=== PATIENT | male | born 1930 | race Caucasian/White ===

== ENCOUNTER 2020-12-09 20:55 | Emergency (ER) | payer MEDICARE, OTHER ==
[~2020-12-09 20:55] MED LIST: ACETAMINOPHEN650 MG PR; ARICEPT5 MG PO; ARTIFICIAL TEAR15 M6 EYEBOTH; ASPIRIN81 MG PO; ATIVAN0.5 MG PO; AUGMENTIN 875-1 EACH PO; BACTRIM DS TAB1 EACH PO; BISACODYL10 MG PR; CENTRUM COMPLE1 EACH PO; COREG 25MG TAB25 MG PO; CYANOCOBAL1000 MCG/1 SC; DEPAKOTE SPRIN125 MG PO; ENULOSE10 GM/15 M PO; INVANZ 1 GM VIAL1 GM IM; K-TAB ER10 MEQ PO; KEFLEX CAP 500500 MG PO; LASIX20 MG PO; LEVOXYL25 MCG PO; LEXAPRO10 MG PO; MILK OF MA400 MG/5 M PO; OMNICEF 300 MG300 MG PO; POTASSIUM CHLO10 MEQ PO; PROTONIX 40 MG40 MG PO; ROBITUSSIN DM UD5 ML GT; SIMVASTATIN20 MG PO; SYNTHROID25 MCG PO; TYLENOL325 MG PO; VISTARIL25 MG PO; VITAMIN D325 MCG PO; VOLTAREN EC 5050 MG PO; ZOCOR20 MG PO
== END 2020-12-10 02:28 | disposition home or self-care (01) ==
LOC: ER1 20:55
DX: S00.93XA Contusion of unspecified part of head, initial encounter (principal); S70.01XA Contusion of right hip, initial encounter; I10 Essential (primary) hypertension; E03.9 Hypothyroidism, unspecified; J96.90 Respiratory failure, unspecified, unspecified whether with hypoxia or hypercapnia; W06.XXXA Fall from bed, initial encounter; Y92.129 Unspecified place in nursing home as the place of occurrence of the external cause
CPT/HCPCS: 70450; 71045; 72125; 72170; 72192; 73501; 99284